=== PATIENT | male | born 1975 | race Caucasian/White ===

== ENCOUNTER 2019-11-20 08:23 | Inpatient (IN) | payer MEDICAID, SELFPAY ==
[~2019-11-20] VITALS: Ht 170.2 cm; Wt 72.6 kg
--- NOTE | 2019-11-20 08:23 | NUR ---
[facility] TO ER BED 01
[2019-11-20 08:40] VITALS: BP 99/56
[2019-11-20] MEDS ORDERED: ACETAMINOPHEN EXTRA STRENGTH 500 MG TAB ONE ×2 (08:44→17:07)
--- NOTE | 2019-11-20 08:50 | NUR ---
dr mendosa at bedside evaluating pt.
--- NOTE | 2019-11-20 09:00 | NUR ---
jenny from home c/o sob for 5 days , tested positive for covid 19 2 weeks ago at [facility] . meds given with no relief . Pt aox4 fibrile , ambulatory ,with steady gait, sce, cbs, flat soft abdomen . pmhxs unremarkable.
--- NOTE | 2019-11-20 09:00 | NUR ---
gave tylenol 1000mg po .
--- NOTE | 2019-11-20 09:10 | NUR ---
eloisa vasquez at bedside faiza ekg.
[2019-11-20 09:17] LABS: BASOPHILS % (AUTO) 0.2 % (0.0-2.0); HEMATOCRIT 38.8 % (36-52); HEMOGLOBIN 13.7 g/dL (12.0-18.0); LYMPHOCYTES # (AUTO) 0.7 K/uL (2.0-11.5); LYMPHOCYTES % (AUTO) 8.4 % (20.5-51.1); MEAN CORPUSCULAR HEMOGLOBIN 30 pg (27-31); MEAN CORPUSCULAR HGB CONC 35 g/dL (33-37); MEAN CORPUSCULAR VOLUME 84.9 fL (80-94); MONOCYTES # (AUTO) 0.4 K/uL (0.8-1.0); MONOCYTES % (AUTO) 5.2 % (1.7-9.3); NEUTROPHILS # (AUTO) 7.3 K/uL (1.8-7.7); NEUTROPHILS % (AUTO) 86.2 % (42.2-75.2); PLATELET COUNT (AUTO) 245 K/uL (140-450); RED BLOOD CELL COUNT(AUTO) 4.57 MIL/uL (4.20-6.10); RED CELL DISTRIBUTION WIDTH 12.9 % (11.6-13.7); WHITE BLOOD COUNT (AUTO) 8.5 K/uL (4.8-10.8)
--- NOTE | 2019-11-20 09:30 | NUR ---
xray at bedside.
[2019-11-20 09:35] LABS: PROTHROMBIN TIME 10.2 secs (10.8-13.4)
[2019-11-20 09:46] LABS: ALBUMIN 3.1 g/dL (3.4-5.0); ANION GAP 17.9 (8-16); CARBON DIOXIDE 23.1 mmol/L (21-32); CREATININE 0.9 mg/dL (0.6-1.3); TOTAL BILIRUBIN 0.7 mg/dL (0.0-1.0)
--- NOTE | 2019-11-20 09:48 | NUR ---
rsv, and influenza , covid test done ,sent to lab.
[2019-11-20] MEDS ORDERED: KCL 20 MEQ/WATER INJ PREMIX 100 ML IV ONE (10:05)
[2019-11-20] MEDS ORDERED: AZITHROMYCIN 500 MG in DEXTROSE 5% 250 ML IV ONE (10:05)
[2019-11-20 10:26] LABS: LACTATE DEHYDROGENASE 452 U/L (85-227)
[2019-11-20] MEDS ORDERED: AZITHROMYCIN 500 MG INJ VIAL IV ONE (10:34)
[2019-11-20] MEDS ORDERED: cefTRIAXone 1,000 MG VIAL ONE (10:34)
[2019-11-20 10:49] LABS: RSV NEGATIVE (NEGATIVE)
--- NOTE | 2019-11-20 10:53 | NUR ---
ANTIBIOTICS STARTED , PT NO COMPLAINT.
[2019-11-20 12:02] LABS: APPEARANCE,URINE SL CLOUDY (CLEAR); BILIRUBIN,URINE NEGATIVE (NEGATIVE); BLOOD, URINE NEGATIVE (NEGATIVE); COLOR,URINE ORANGE (YELLOW); LEUKOCYTE ESTERASE ,URINE NEGATIVE (NEGATIVE); NITRITE, URINE NEGATIVE (NEGATIVE); UGLUCOSE NEGATIVE (NEGATIVE)
[2019-11-20 12:14] LABS: RBC,URINE 0-5 /HPF (0-5); WBC,URINE 0-5 /HPF (0-5)
[2019-11-20 12:26] LABS: C-REACTIVE PROTEIN QUANT 8.5 mg/dL (0.0-0.9)
--- NOTE | 2019-11-20 14:00 | NUR ---
PT SITTING IN BED SNACKING , WITH NO COMPLAINT AT THIS TIME.
--- NOTE | 2019-11-20 16:36 | NUR ---
pt resting in bed comfortably , side rail up x1 and lock at lowest position.no complaint at this time.
[2019-11-20] MEDS ORDERED: ACETAMINOPHEN EXTRA STRENGTH 500 MG TAB PO PRN (17:10)
--- NOTE | 2019-11-20 17:15 | NUR ---
oral temperature 101.6 , gave tylenol 1000mg /tab .
--- NOTE | 2019-11-20 17:24 | NUR ---
spoke to emile pt regarding pt condition . all question answered.
--- NOTE | 2019-11-20 19:18 | NUR ---
RECEIVED REPORT FROM MIGUEL BEST FOR CONTINUATION OF CARE
--- NOTE | 2019-11-20 19:20 | NUR ---
transfer care to madeline villareal pt with stable vs.
--- NOTE | 2019-11-20 19:40 | NUR ---
RECEIVED CALL FROM LAB REGARDING COVID SPECIMEN, PT IS COVID POSITIVE
--- NOTE | 2019-11-20 19:41 | NUR ---
MD JOHNSON AWARE OF + COVID RESULT FROM LAB.
[2019-11-20] MEDS: ZINC SULF 220 MG CAP PO SCH (20:35)
--- NOTE | 2019-11-20 20:36 | NUR ---
PT RESTING IN BED, RESPIRATIONS REGULAR AND UNLABORED. PT REMAINS ON O2 AND ON BEDSIDE MONITOR. BED IN LOWEST POSITION AND SIDE RAIL UP X 1
--- NOTE | 2019-11-20 20:50 | NUR ---
PTS DAUGHTER, JACKIE, CALLED WANTING AN UPDATE ON HER DAD. ADVISED HE IS STABLE AND WAITING TO BE TRANSFERRED TO [facility]. ADVISED PT DAUGHTER CALLED.
--- NOTE | 2019-11-20 22:01 | NUR ---
PT UP AT BEDSIDE COMMODE, ABLE TO AMBULATE WITHOUT ASSITANCE TO COMMODE
--- NOTE | 2019-11-20 22:30 | NUR ---
PT BACK TO BED, PLACED BACK ON BEDSIDE MONITOR AND O2. PT HAD LOOSE BM. PT DENIES N/V, STATES HE FEELS WEAK. BED REMAINS LOCKED, LOW, AND SIDERAIL UP X1
--- NOTE | 2019-11-20 23:12 | NUR ---
PT TEMP WAS 100.0, MEDICATED WITH TYLENOL PER ORDER FOR FEVER. REPOSITIONED PT FOR COMFORT.
--- NOTE | 2019-11-21 00:22 | NUR ---
PTS TEMP 101.1 AFTER 1 G TYLENOL, NO CHANGED ER MD NOTIFIED, AWAITING ORDER
[2019-11-21] MEDS ORDERED: MAG SULF 2000 MG/WATER PREMIX 50 ML IV PRN (00:50)
[2019-11-21] MEDS ORDERED: POTASSIUM CHLORIDE 10 MEQ TABER PO PRN (00:50)
[2019-11-21] MEDS ORDERED: ONDANSETRON 4 MG/2 ML VIAL IM/IVP PRN (00:55)
[2019-11-21] MEDS ORDERED: MORPHINE SULFATE 2 MG/ML SYR IVP PRN (00:55)
[2019-11-21] MEDS ORDERED: ACETAMINOPHEN 325 MG TAB PO PRN (00:55)
[2019-11-21] MEDS ORDERED: ZOLPIDEM 5 MG TAB PO PRN (00:55)
[2019-11-21] MEDS ORDERED: DOCUSATE SODIUM 100 MG GELCAP PO PRN (00:55)
[2019-11-21 01:25] LABS: BARBITURATE, URINE NEGATIVE ng/ml (NEG <=200); BENZODIAZEPINE, URINE NEGATIVE ng/mL (NEG <=200); CANNABINOID, URINE POSITIVE ng/mL (NEG <=50); COCAINE, URINE NEGATIVE ng/mL (NEG <=300); OPIATE, URINE NEGATIVE ng/mL (NEG <=2000); PHENCYCLIDINE SCREEN,URINE NEGATIVE ng/mL (NEG <=25)
[2019-11-21 01:27] LABS: CHOL/HDL RATIO 2.8 (1-4.5); THYROID STIMULATING HORMONE 0.46 uIU/mL (0.34-3.74)
[2019-11-21] MEDS: NACL 0.9% 1,000 ML IV SCH ×3 (01:40→19:48)
--- NOTE | 2019-11-21 03:05 | NUR ---
PT SLEEPING, REMAINS ON BEDSIDE MONITOR, RESPIRATIONS REMAIN ELEVATED AT 25, THEY ARE EVEN AND UNLABORED, O2 STA IS 97% ON 3 L N/C. PT REMAINS ON BEDSDIE MONITOR. NO SIGNS OF DISTRESS NOTED.
--- NOTE | 2019-11-21 06:30 | NUR ---
LAB AT BEDSIDE DRAWING AM LABS
--- NOTE | 2019-11-21 07:18 | NUR ---
REPORT GIVEN TO MIGUEL BEST FOR TRANSFER OF CARE
--- NOTE | 2019-11-21 07:19 | NUR ---
RECEIVED REPORT FROM ESTEPHANIA ROSS.
--- NOTE | 2019-11-21 07:55 | NUR ---
PATIENT HAS BEEN SCREENED AND CATEGORIZED MODERATE NUTRITION RISK. PATIENT WILL BE SEEN WITHIN 3-5 DAYS OF ADMISSION. 11/23/19 11/25/[address]
--- NOTE | 2019-11-21 07:57 | NUR ---
500 ml left of nss received from madeline villareal.
[2019-11-21] MEDS ORDERED: cefTRIAXone 1,000 MG VIAL ONE (08:21)
[2019-11-21 08:49] LABS: BASOPHILS % (AUTO) 0.5 % (0.0-2.0); HEMATOCRIT 38.1 % (36-52); HEMOGLOBIN 13.2 g/dL (12.0-18.0); LYMPHOCYTES # (AUTO) 1.1 K/uL (2.0-11.5); MEAN CORPUSCULAR HEMOGLOBIN 30 pg (27-31); MEAN CORPUSCULAR HGB CONC 35 g/dL (33-37); MEAN CORPUSCULAR VOLUME 86.7 fL (80-94); MONOCYTES # (AUTO) 0.4 K/uL (0.8-1.0); MONOCYTES % (AUTO) 5.3 % (1.7-9.3); NEUTROPHILS # (AUTO) 6.5 K/uL (1.8-7.7); NEUTROPHILS % (AUTO) 80.2 % (42.2-75.2); PLATELET COUNT (AUTO) 276 K/uL (140-450); RED BLOOD CELL COUNT(AUTO) 4.39 MIL/uL (4.20-6.10); RED CELL DISTRIBUTION WIDTH 13.2 % (11.6-13.7); WHITE BLOOD COUNT (AUTO) 8.1 K/uL (4.8-10.8)
[2019-11-21] MEDS ORDERED: AZITHROMYCIN 250 MG TAB PO SCH (09:00)
[2019-11-21] MEDS: VITAMIN D 400 IU TAB PO SCH (09:04)
[2019-11-21] MEDS: ASCORBIC ACID 500 MG TAB PO SCH (09:05)
[2019-11-21] MEDS: ZINC SULF 220 MG CAP PO SCH ×2 (09:08→21:17)
[2019-11-21] MEDS: AZITHROMYCIN 250 MG TAB PO SCH (09:08)
[2019-11-21] MEDS: ENOXAPARIN 80 MG/0.8 ML SYR SUBQ SCH ×2 (09:09→21:19)
--- NOTE | 2019-11-21 09:14 | NUR ---
spoke to pt daughter on the phone with pt permission regarding pt condition.
[2019-11-21 09:18] LABS: ALBUMIN 2.7 g/dL (3.4-5.0); ANION GAP 15.2 (8-16); CARBON DIOXIDE 24.2 mmol/L (21-32); CREATININE 0.8 mg/dL (0.6-1.3); MAGNESIUM 2.1 mg/dL (1.8-2.4); PHOSPHORUS 3.1 mg/dL (2.5-4.9); POTASSIUM 3.4 mmol/L (3.5-5.1); TOTAL BILIRUBIN 0.6 mg/dL (0.0-1.0)
--- NOTE | 2019-11-21 10:07 | NUR ---
pt eating breakfast no complaint at this time.
--- NOTE | 2019-11-21 10:39 | NUR ---
transfered care to madeline wihtley at OF room 127. pt aox4 , afibrile , ambulatory with steady gait.stable v/s.
--- NOTE | 2019-11-21 10:39 | NUR ---
300 ml left of nss bag running at 100ml /hr to OF01 room 127. madeline dent informed and aware.
[2019-11-21] MEDS: ALBUTEROL HFA MDI 90 MCG/ACTUATION 8 GM INH PRN (11:11)
--- NOTE | 2019-11-21 11:15 | NUR ---
RECEIVED PT FROM ER FOR CONTINUATION OF CARE. PT IS TACHYPNEIC AND DIAPHORETIC WITH 02 SAT 90% ON NC 5LPM. CALLED RT FOR ALBUTEROL MDI. PLACED PT ON OXIMIZER AT 5LPM, O2 SAT INCREASED TO 96%. ADMINISTERED 1MG ATIVAN IVP TO HELP EASE PT ANXIETY AND ADMINISTERED 1 5MG TAB NORCO FOR CHEST PAIN ON INHALATION. SITUATED PT IN BED FOR COMFORT AND DIMMED LIGHT.
[2019-11-21] MEDS: LORazepam 2 MG/ML VIAL IM/IVP PRN ×2 (11:29→18:24)
[2019-11-21] MEDS: HYDROcodone/APAP 5/325 MG 1 TAB TAB PO PRN ×2 (11:29→18:24)
--- NOTE | 2019-11-21 12:07 | NUR ---
PT COMFORTABLE AND RESTING IN BED, NO NEW NEEDS AT THIS TIME
--- NOTE | 2019-11-21 14:00 | NUR ---
PT AWAKE AND ON CELL PHONE. NO NEW NEEDS AT THIS TIME.
--- NOTE | 2019-11-21 16:21 | NUR ---
BROUGHT PT ICE WATER AND JUICE PER REQUEST. PT AMBULATED TO RESTROOM WITH STEADY GAIT. PT REMAINS ON 5LMP OXIMIZER AT 97%
--- NOTE | 2019-11-21 17:50 | NUR ---
PT REPORTS BODY ACHES 7/10 AND FEELING LIKE HIS "HEART IS BEATING FAST".
--- NOTE | 2019-11-21 18:05 | NUR ---
PT IV CAME OUT OF PLACE, NEW IV STARTED ON LFA
--- NOTE | 2019-11-21 19:25 | NUR ---
Patient will be admitted to care of dr. vyas. Admited to tele. Will go to room 127B. Belongings list completed. Report to ESTEPHANIA Johnson.
--- NOTE | 2019-11-21 19:25 | NUR ---
RECEIVED PT FROM ER NURSE, LIZZY. PT ON TELE MONITOR. PT AOX4 ON 5L OXYMIZER. NO S/S RESPIRATORY DISTRESS. NO C/O PAIN AT THIS TIME. IV SITE ON L FA 20G, ASYMPTOMATIC, PATENT, INTACT. SKIN INTACT. SAFETY PRECAUTIONS IN PLACE. DROPLET PRECAUTION IN PLACE. CALL LIGHT WITHIN REACH. WILL CONTINUE TO MONITOR.
[2019-11-21 20:00] VITALS: BP 107/61
--- NOTE | 2019-11-21 21:09 | NUR ---
PT SLEEPING COMFORTABLY W/ NO S/S OF DISTRESS AT THIS TIME
--- NOTE | 2019-11-21 21:20 | NUR ---
ADMINISTERED SCHEDULED MEDICATION PER MD. MEDICATION EDUCATION GIVEN. PT VERBALIZED UNDERSTANDING. WILL CONTINUE TO MONITOR.
--- NOTE | 2019-11-21 23:30 | NUR ---
PT AWAKE RESTING IN BED. RESPIRATIONS EVEN AND UNLABORED. NO C/O PAIN AT THIS TIME. DENIES SOB. WILL CONTINUE TO MONITOR.
[2019-11-22] VITALS: BP 113/69
--- NOTE | 2019-11-22 01:30 | NUR ---
PT ASLEEP. NO DISTRESS NOTED. WILL CONTINUE TO MONITOR.
--- NOTE | 2019-11-22 03:45 | NUR ---
PT ASLEEP IN BED. RESPIRATIONS EVEN AND UNLABORED. WILL CONTINUE TO MONITOR.
[2019-11-22 04:00] VITALS: BP 100/65
--- NOTE | 2019-11-22 05:30 | NUR ---
PT CHEST PAIN WHEN COUGHING. SAT PT UP HIGH FOWLERS POSITION. CALLED RT. RT ON BEDSIDE INCREASED OXYMIZER TO 7L. WILL CONTINUE TO MONITOR.
--- NOTE | 2019-11-22 05:45 | NUR ---
PT STATES CHEST PAIN DECREASED, ABLE TO TOLERATE. NO DISTRESS NOTED. CALL LIGHT WITHIN REACH. WILL CONTINUE TO MONITOR.
[2019-11-22 06:18] LABS: BASOPHILS % (AUTO) 0.5 % (0.0-2.0); HEMOGLOBIN 13.9 g/dL (12.0-18.0); LYMPHOCYTES # (AUTO) 1.4 K/uL (2.0-11.5); LYMPHOCYTES % (AUTO) 27.3 % (20.5-51.1); MEAN CORPUSCULAR HEMOGLOBIN 30 pg (27-31); MEAN CORPUSCULAR HGB CONC 34 g/dL (33-37); MONOCYTES # (AUTO) 0.6 K/uL (0.8-1.0); MONOCYTES % (AUTO) 11.2 % (1.7-9.3); NEUTROPHILS # (AUTO) 3.1 K/uL (1.8-7.7); PLATELET COUNT (AUTO) 365 K/uL (140-450); RED BLOOD CELL COUNT(AUTO) 4.66 MIL/uL (4.20-6.10); RED CELL DISTRIBUTION WIDTH 13.3 % (11.6-13.7); WHITE BLOOD COUNT (AUTO) 5.2 K/uL (4.8-10.8)
[2019-11-22] MEDS: NACL 0.9% 1,000 ML IV SCH ×2 (06:50→16:52)
[2019-11-22 07:13] LABS: ALBUMIN 2.7 g/dL (3.4-5.0); CARBON DIOXIDE 28.2 mmol/L (21-32); CREATININE 0.9 mg/dL (0.6-1.3); MAGNESIUM 2.3 mg/dL (1.8-2.4); PHOSPHORUS 3.9 mg/dL (2.5-4.9); POTASSIUM 4.2 mmol/L (3.5-5.1); TOTAL BILIRUBIN 0.5 mg/dL (0.0-1.0)
--- NOTE | 2019-11-22 07:15 | NUR ---
ENDORSED PT IN STABLE CONDITION TO DAY RN FOR CONTINUITY OF CARE.
--- NOTE | 2019-11-22 07:20 | NUR ---
RECEIVED PT FROM BIOSECURITY OFFICER NURSEMAGALIE,PT IS AWAKE AND ON O2 AT 7L OXIMIZER, IV LINE ON THE LFA G. 22 WITH NS INFUSING AT 100ML/HR, NO SIGN OF DISTRESS NOTED AND WILL MONITOR PT.
[2019-11-22 08:00] VITALS: BP 109/60
[2019-11-22 08:06] LABS: T4 (THYROXINE) 10.2 ug/dL (4.5-12.0)
[2019-11-22] MEDS: ENOXAPARIN 80 MG/0.8 ML SYR SUBQ SCH ×2 (08:27→21:37)
[2019-11-22] MEDS: ZINC SULF 220 MG CAP PO SCH ×2 (08:27→21:36)
[2019-11-22] MEDS: VITAMIN D 400 IU TAB PO SCH (08:27)
[2019-11-22] MEDS: AZITHROMYCIN 250 MG TAB PO SCH (08:28)
--- NOTE | 2019-11-22 08:28 | NUR ---
PT WAS GIVEN THE SCHEDULED AM MEDICATIONS NOW, NO SIGN OF DISTRESS NOTED AND WILL MONITOR PT.
[2019-11-22] MEDS: ASCORBIC ACID 500 MG TAB PO SCH (08:34)
[2019-11-22] MEDS: ALBUTEROL HFA MDI 90 MCG/ACTUATION 8 GM INH PRN (08:51)
[2019-11-22] MEDS ORDERED: guaiFENesin 600 MG TABER PO SCH (10:46)
--- NOTE | 2019-11-22 11:43 | NUR ---
OCCUPATIONAL THERAPY PROFESSOR NOTE: Patient's Orientation Unable To Assess Information Provided By SLY LUZ - Comments SW WAS UNABLE TO MEET PATIENT AT BEDSIDE DUE TO MEDICAL CONDITION. Timing Adjuster, Realtionship and Phone Number SLY LUZ [phone] Healthcare Power of Stack Attendant No Does Patient Have a POLST No Identifying Problems No Social Work Triggers Is A Social Work Consult Needed No Mandate Report Filed No Explanation Of Identifying Problems PATIENT IS A 44-YEAR-OLD MALE ADMITTED FOR PNEUMONIA. PATIENT HAS NO PERTINENT PMHX. Admitted From Home Pre-Admission Level Of Functioning Status Independent/Ambulatory Prior Resources/Services Used In Last 12 Months No Prior Resources Used Prior DME No Prior DME Used Living Situation Lives With Family House Patient Had Caregiver No Home Support No Caregiver Issues Financial Issues No Known Financial Issue Referral To The Financial Counselor Needed No Factors/Needs No D/C Needs Identified Pt/Rep Participated In Discharge Plan Yes Patient/Family Agress With Discharge Plan Yes Discharge Plan Comments TENTATIVE DISCHARGE PLAN IS FOR PATIENT TO RETURN HOME. DC Plan Status Initiated
--- NOTE | 2019-11-22 11:45 | NUR ---
PT WAS GIVEN MUCINEX ORAL TABLET NOW, NO SIGN OF DISTRESS NOTED AND WILL MONITOR PT.
[2019-11-22 12:00] VITALS: BP 103/63
--- NOTE | 2019-11-22 13:40 | NUR ---
PT WAS ASSISTED TO THE BATHROOM NOW, NO SIGN OF DISTRESS NOTED.
[2019-11-22] MEDS ORDERED: remdesivir COMMUNICATION ORDER 1 EA MISC MC PRN (15:50)
[2019-11-22 16:00] VITALS: BP 125/69
--- NOTE | 2019-11-22 16:00 | NUR ---
PT IS RESTING NOW, WATCHING TV, NO SIGN OF DISTRESS NOTED.
[2019-11-22] MEDS ORDERED: REMDESIVIR (EUA) 200 MG in NACL 0.9% 100 ML IV ONE (18:00)
[2019-11-22] MEDS ORDERED: CLINICAL MONITORING MC PRN (18:00)
--- NOTE | 2019-11-22 18:03 | NUR ---
PT WAS GIVEN REMDESEVIR IVPB NOW, WILL MONITOR PT.
--- NOTE | 2019-11-22 19:30 | NUR ---
ENDORSED PT TO ASSISTANT SPA MANAGER NURSEMAGALIE FOR CONTINUITY OF CARE.
--- NOTE | 2019-11-22 19:30 | NUR ---
RECEIVED PT FROM DAY SHIFT NURSE. PT IS AWAKE AND ON O2 AT 9L OXIMIZER, IV LINE ON THE LFA 22G WITH NS INFUSING AT 100ML/HR, NO SIGN OF DISTRESS NOTED AND WILL MONITOR PT.
[2019-11-22 20:00] VITALS: BP 116/72
[2019-11-22] MEDS: guaiFENesin 600 MG TABER PO SCH (21:35)
--- NOTE | 2019-11-22 21:35 | NUR ---
ADMINISTERED SCHEDULED MEDS PER MD. MEDICATION EDUCATION GIVEN. PT VERBALIZED UNDERSTANDING. WILL CONTINUE TO MONITOR.
--- NOTE | 2019-11-22 23:40 | NUR ---
PT ASLEEP IN BED. RESPIRATIONS EVEN AND UNLABORED. WILL CONTINUE TO MONITOR.
[2019-11-23] VITALS: BP 116/63
--- NOTE | 2019-11-23 01:20 | NUR ---
PT AWAKE. DENIES PAIN, DENIES SOB. NO DISTRESS NOTED. O2 SATURATION 96%. WILL CONTINUE TO MONITOR.
[2019-11-23] MEDS: NACL 0.9% 1,000 ML IV SCH ×3 (03:21→22:13)
--- NOTE | 2019-11-23 03:40 | NUR ---
PT ASLEEP. NO DISTRESS NOTED. WILL CONTINUE TO MONITOR.
[2019-11-23 04:00] VITALS: BP 108/66
--- NOTE | 2019-11-23 05:15 | NUR ---
PT AWAKE. RESPIRATIONS EVEN AND UNLABORED. NO C/O PAIN AT THIS TIME. WILL CONTINUE TO MONITOR.
[2019-11-23 05:45] LABS: BASOPHILS % (AUTO) 0.2 % (0.0-2.0); HEMATOCRIT 37.9 % (36-52); HEMOGLOBIN 12.8 g/dL (12.0-18.0); LYMPHOCYTES # (AUTO) 2.2 K/uL (2.0-11.5); LYMPHOCYTES % (AUTO) 24.2 % (20.5-51.1); MEAN CORPUSCULAR HEMOGLOBIN 30 pg (27-31); MEAN CORPUSCULAR HGB CONC 34 g/dL (33-37); MEAN CORPUSCULAR VOLUME 88.2 fL (80-94); MONOCYTES % (AUTO) 10.5 % (1.7-9.3); NEUTROPHILS # (AUTO) 5.9 K/uL (1.8-7.7); NEUTROPHILS % (AUTO) 65.1 % (42.2-75.2); PLATELET COUNT (AUTO) 408 K/uL (140-450); RED CELL DISTRIBUTION WIDTH 13.2 % (11.6-13.7); WHITE BLOOD COUNT (AUTO) 9.1 K/uL (4.8-10.8)
[2019-11-23 06:14] LABS: PROTHROMBIN TIME 10.6 secs (10.8-13.4)
[2019-11-23 06:21] LABS: ALBUMIN 2.5 g/dL (3.4-5.0); ANION GAP 12.7 (8-16); CARBON DIOXIDE 28.9 mmol/L (21-32); CREATININE 0.8 mg/dL (0.6-1.3); PHOSPHORUS 3.8 mg/dL (2.5-4.9); POTASSIUM 3.6 mmol/L (3.5-5.1); TOTAL BILIRUBIN 0.4 mg/dL (0.0-1.0)
--- NOTE | 2019-11-23 07:21 | NUR ---
RECEIVED REPORT FROM AIR CONDITIONING COIL ASSEMBLER RN FOR CONTINUITY OF CARE. PT IS AAOX4, COOPERATIVE AND ABLE TO MAKE NEEDS KNOWN. PT ON 9L O2 VIA OXYMIZER SATING 96%. PT SKIN INTACT. AMBULATORY AND ABLE TO PERFORM ADL'S INDEPENDENTLY. PT HAS LEFT FA 22G INFUSING NS @ 100ML/HR. DISCUSSED POC WITH PT AND TP VERBALIZED UNDERSTANDING. ALL NEEDS CURRENTLY MET. WILL CONTINUE TO ROUND FREQUENTLY ON PT.
--- NOTE | 2019-11-23 07:25 | NUR ---
ENDORSED PT IN STABLE CONDITION TO DAY RN FOR CONTINUITY OF CARE.
[2019-11-23 08:00] VITALS: BP 110/60
--- NOTE | 2019-11-23 08:47 | NUR ---
ADMINISTERED MORNING MEDS. PT TOLERATED WELL. ALL NEEDS CURRENTLY MET. WILL CONTINUE TO ROUND FREQUENTLY ON PT.
[2019-11-23] MEDS: VITAMIN D 400 IU TAB PO SCH (08:55)
[2019-11-23] MEDS: guaiFENesin 600 MG TABER PO SCH ×2 (08:55→20:30)
[2019-11-23] MEDS: ASCORBIC ACID 500 MG TAB PO SCH (08:55)
[2019-11-23] MEDS: ZINC SULF 220 MG CAP PO SCH ×2 (08:56→20:30)
[2019-11-23] MEDS: AZITHROMYCIN 250 MG TAB PO SCH (08:56)
[2019-11-23] MEDS: ENOXAPARIN 80 MG/0.8 ML SYR SUBQ SCH ×2 (09:12→20:45)
--- NOTE | 2019-11-23 11:07 | NUR ---
RECEIVED REPORT FROM PROGRAM DIRECTOR AIR TALENT RN FOR CONTINUITY OF CARE. PT IS AAOX4, COOPERATIVE AND ABLE TO MAKE NEEDS KNOWN. PT ON 9L O2 VIA OXYMIZER SATING 96%. PT SKIN INTACT. AMBULATORY AND ABLE TO PERFORM ADL'S INDEPENDENTLY. PT HAS LEFT FA 22G INFUSING NS @ 100ML/HR. DISCUSSED POC WITH PT AND TP VERBALIZED UNDERSTANDING. ALL NEEDS CURRENTLY MET. WILL CONTINUE TO ROUND FREQUENTLY ON PT. Addendum: 11/23/19 at 1113 by Missy Bartlett RN MORNING OPENING NOTE.
--- NOTE | 2019-11-23 11:12 | NUR ---
PT RESTING IN BED. ALL NEEDS MET. WILL CONTINUE TO ROUND FREQUENTLY ON PT.
[2019-11-23 12:00] VITALS: BP 119/61
--- NOTE | 2019-11-23 13:11 | NUR ---
PT TALKING ON THE PHONE. ALL NEEDS MET.
--- NOTE | 2019-11-23 15:21 | NUR ---
DISCHARGE PLANNING: THIS IS A 44 Y/O MALE PATIENT FROM HOME, WHO WAS BIBA DUE TO SHORTNESS OF BREATH. PAST MEDICAL HISTORY INCLUDE [place] [facility] [place] DIAGNOSIS OF PNEUMONIA/COVID POSITIVE. ON REMDESIVIR, DECADRON, ROCEPHIN, AZITHROMYCIN. PULMO AND ID CONSULTS IN PLACE. ON OXYMIZER AT 9 LPM. DC PLAN BACK TO HOME ONCE STABLE. Addendum: 11/24/19 at 0847 by Clara Cummings CM RECEIVED ORDER FOR HOME 02. FAXED TO [employer]. Addendum: 11/24/19 at 1019 by Clara Cummings CM SPOKE TO SILVANA FROM [facility] SHE IS REQUESTING DOCUMENT THAT PATIENT SATS AT 89% OR BELOW. SPOKE TO ESTEPHANIA XAVIER SHE IS GOING TO ASSES HIM AND MAKE NOTE Addendum: 11/24/19 at 1252 by Clara Cummings CM FOLLOWED UP WITH SILVANA AT [facility] SHE RECEIVED ALL THE SUPPORTING DOCUMENTS THAT WAS NEEDED. HOME O2 WILL BE DISPATCHED AND DELIVERED TODAY Addendum: 11/24/19 at 1437 by Chloe Bailey RECEIVED A CALL FROM PRIMARY RN TO INFORM US THAT O2 HAVE BEEN DELIVERED AT THE BEDSIDE. DR. MCKEON MADE AWARE. PER DR. MCKEON, PATIENT IS NOT READY FOR DC YET, PATIENT IS STILL ON O2 AT 10 LPM/OXYMIZER. PRIMARY RN CONFIRMED THAT PATIENT IS AT 9 LPM/OXYMIZER. DR. MCKEON MADE AWARE, WILL NOT BE DISCHARGING PATIENT YET. PRIMARY RN MADE AWARE.
--- NOTE | 2019-11-23 15:47 | NUR ---
PT WATCHING TV AND RESTING IN BED. ALL NEEDS CURRENTLY MET.
[2019-11-23 16:00] VITALS: BP 115/76
--- NOTE | 2019-11-23 17:28 | NUR ---
PT RESTING IN BED. ALL NEEDS MET. WILL CONTINUE TO ROUND FREQUENTLY ON PT.
[2019-11-23] MEDS: REMDESIVIR (EUA) 100 MG in NACL 0.9% 100 ML IV SCH (18:03)
--- NOTE | 2019-11-23 18:52 | NUR ---
WILL ENDORSE PT TO COPPER PLATE PRINTER FOR CONTINUITY OF CARE. PT IN STABLE CONDITION AT THIS TIME.
--- NOTE | 2019-11-23 19:20 | NUR ---
RECEIVED BEDSIDE REPORT FROM DAY RN LISA. PT IS LAYING COMFORTABLY IN BED NO S/S OF DISTRESS. VIETNAMESE SPEAKING. AAOX4. RESPIRATIONS ARE EQUAL AND UNLABORED ON 9L OXIMZER SAT 97% HR 77. PT IS AMBULATORY AND ABLE TO MAKE NEEDS KNOWN. SKIN IS INTACT. DX:PNA, COVID + ISOLATION PER PROTOCOL SIGN AT DOOR. LFA 22G IVF INFUSING PER ORDERS. ALL SAFETY MEASURES ARE IN PLACE. POC DISCUSSED WITH PT. CALL LIGHT IS WITHIN REACH. WILL CONTINUE TO MONITOR.
[2019-11-23 20:00] VITALS: BP 114/67
--- NOTE | 2019-11-23 20:45 | NUR ---
VSS, ADONAY MEDICATION GIVEN PER ORDERS. MED EDUCATION GIVEN PT VERBALIZED UNDERSTANDING. ALL QUESTIONS AND CONCERNS ADDRESSED.PT ATE 75% OF DINNER. ENCOURAGE PT TO AMBULATE IN ROOM. ALL SAFETY MEASURES ARE IN PLACE. ALL NEEDS MET. CALL LIGHT IS WITHIN REACH.
--- NOTE | 2019-11-23 22:06 | NUR ---
PT IS LAYING COMFORTABLY IN BED. NO S/S OF DISTRESS. CALL LIGHT IS WITHIN REACH.
[2019-11-24] VITALS: BP 121/61
--- NOTE | 2019-11-24 | NUR ---
VITAL SIGNS ARE WITHIN NORMAL LIMITS. ALL NEEDS MET. CALL LIGHT IS WITHIN REACH.
--- NOTE | 2019-11-24 01:49 | NUR ---
PT IS SLEEPING COMFORTABLY IN BED WITH EYES CLOSED. CHEST RISE AND FALL NOTED. CALL LIGHT IS WITHIN REACH. WILL CONTINUE TO MONITOR.
[2019-11-24 04:00] VITALS: BP 115/76
--- NOTE | 2019-11-24 04:00 | NUR ---
VITAL SIGNS ARE WITHIN NORMAL LIMITS. ALL SAFETY MEASURES ARE IN PLACE. WILL CONTINUE TO MONITOR.
[2019-11-24] MEDS: NACL 0.9% 1,000 ML IV SCH ×2 (04:55→17:48)
--- NOTE | 2019-11-24 05:58 | NUR ---
MADE ROUNDS. PT SLEEPING COMFORTABLY IN BED. CALL LIGHT IS WITHIN REACH.
[2019-11-24 06:22] LABS: BASOPHILS % (AUTO) 0.1 % (0.0-2.0); EOSINOPHILS % (AUTO) 0.1 % (0.0-4.0); HEMATOCRIT 36.8 % (36-52); HEMOGLOBIN 12.5 g/dL (12.0-18.0); LYMPHOCYTES % (AUTO) 27.4 % (20.5-51.1); MEAN CORPUSCULAR HEMOGLOBIN 30 pg (27-31); MEAN CORPUSCULAR HGB CONC 34 g/dL (33-37); MEAN CORPUSCULAR VOLUME 87.8 fL (80-94); MONOCYTES # (AUTO) 0.7 K/uL (0.8-1.0); MONOCYTES % (AUTO) 9.8 % (1.7-9.3); NEUTROPHILS # (AUTO) 4.7 K/uL (1.8-7.7); NEUTROPHILS % (AUTO) 62.6 % (42.2-75.2); PLATELET COUNT (AUTO) 420 K/uL (140-450); RED BLOOD CELL COUNT(AUTO) 4.19 MIL/uL (4.20-6.10); RED CELL DISTRIBUTION WIDTH 13.1 % (11.6-13.7); WHITE BLOOD COUNT (AUTO) 7.4 K/uL (4.8-10.8)
[2019-11-24 07:01] LABS: ALBUMIN 2.4 g/dL (3.4-5.0); ANION GAP 10.8 (8-16); CARBON DIOXIDE 27.7 mmol/L (21-32); CREATININE 0.7 mg/dL (0.6-1.3); MAGNESIUM 1.9 mg/dL (1.8-2.4); PHOSPHORUS 3.4 mg/dL (2.5-4.9); POTASSIUM 3.5 mmol/L (3.5-5.1); TOTAL BILIRUBIN 0.4 mg/dL (0.0-1.0)
--- NOTE | 2019-11-24 07:19 | NUR ---
GAVE BEDSIDE REPORT TO DAY RN. PT ENDORSED IN STABLE CONDITION.
--- NOTE | 2019-11-24 07:24 | NUR ---
RECEIVED REPORT FROM NIGHTSHIFT NURSE. PT RESTING IN BED. ABLE TO MAKE NEEDS KNOWN. RESPIRATIONS EVEN AND UNLABORED WITH NO SOB OR RESPIRATORY DISTRESS. SKIN WARM AND DRY TO TOUCH. IV SITE IN LFA 20G IS CLEAN, DRY, AND INTACT. SAFETY MEASURES IN PLACE. WILL CONTINUE TO MONITOR
[2019-11-24 08:00] VITALS: BP 109/57
[2019-11-24] MEDS: ENOXAPARIN 80 MG/0.8 ML SYR SUBQ SCH ×2 (09:51→21:00)
[2019-11-24] MEDS: VITAMIN D 400 IU TAB PO SCH (09:56)
[2019-11-24] MEDS: ASCORBIC ACID 500 MG TAB PO SCH (09:56)
[2019-11-24] MEDS: AZITHROMYCIN 250 MG TAB PO SCH (09:57)
[2019-11-24] MEDS: ZINC SULF 220 MG CAP PO SCH ×2 (09:57→21:00)
[2019-11-24] MEDS: guaiFENesin 600 MG TABER PO SCH ×2 (09:57→21:00)
--- NOTE | 2019-11-24 10:05 | NUR ---
ADMINISTERED SCHED MED PRESCRIBED PER MD ORDER. PT TOLERATED WELL. SAFETY MEASURES IN PLACE. WILL CONTINUE TO MONITOR
--- NOTE | 2019-11-24 10:33 | NUR ---
ASSESSED PATIENT'S NEED FOR OXYGEN THERAPY. TOOK 9L OXYMIZER OFF PATIENT TO SEE HOW HE TOLERATES ON ROOM AIR. PATIENT HAD DESATURATION OF 86-87% ON ROOM AIR. PLACED PATIENT BACK ON OXYMIZER. SAFETY MEASURES IN PLACE. WILL CONTINUE TO MONITOR
--- NOTE | 2019-11-24 11:24 | NUR ---
HOURLY ROUNDING. PT RESTING IN BED. ABLE TO MAKE NEEDS KNOWN. RESPIRATIONS EVEN AND UNLABORED WITH NO SOB OR RESPIRATORY DISTRESS. SKIN WARM AND DRY TO TOUCH. SAFETY MEASURES IN PLACE. WILL CONTINUE TO MONITOR
[2019-11-24 12:00] VITALS: BP 124/74
--- NOTE | 2019-11-24 13:10 | NUR ---
11/24/19 RD INITIAL ASSESSMENT COMPLETED PLEASE REFER TO NUTRITION ASSESSMENT UNDER CARE ACTIVITY FOR ESTIMATED NUTRITIONAL NEEDS. 1. CONTINUE REGULAR DIET TOLERATED 2. CONTINUE ENSURE TID 3. RD PROVIDED NUTRITION EDUCATION ON COVID-[address] TO FOLLOW-UP 3-5 DAYS, MODERATE RISK MALORIE IRIZARRY RD
--- NOTE | 2019-11-24 13:30 | NUR ---
ALYCIA BROUGHT OXYGEN FOR PATIENT TO USE UPON DISCHARGE. OXYGEN PLACED IN PATIENT'S ROOM. PATIENT STATES THAT HE IS NOT READY FOR DISCHARGE JUST YET. SAFETY MEASURES IN PLACE. WILL CONTINUE TO MONITOR
--- NOTE | 2019-11-24 14:15 | NUR ---
STARTED WEANING PATIENT OFF OF OXYMIZER. PATIENT AT 5L OXYMIZER AND O2 AT 96%. SAFETY MEASURES IN PLACE. WILL CONTINUE TO MONITOR
[2019-11-24 16:00] VITALS: BP 107/57
--- NOTE | 2019-11-24 16:45 | NUR ---
PT RESTING IN BED. ABLE TO MAKE NEEDS KNOWN. RESPIRATIONS EVEN AND UNLABORED WITH NO SOB OR RESPIRATORY DISTRESS. PT AT 96% ON 5L OXYMIZER. SKIN WARM AND DRY TO TOUCH. SAFETY MEASURES IN PLACE. WILL CONTINUE TO MONITOR
--- NOTE | 2019-11-24 17:00 | NUR ---
PT SIGNED CONSENT FOR PLASMA TRANSFUSION. CONSENT PLACED IN PATIENTS CHART. JUST AWAITING SIGNATURE FROM MD. SAFETY MEASURES IN PLACE. WILL CONTINUE TO MONITOR
[2019-11-24] MEDS: REMDESIVIR (EUA) 100 MG in NACL 0.9% 100 ML IV SCH (17:48)
--- NOTE | 2019-11-24 17:52 | NUR ---
ADMINISTERED SCHED MED PRESCRIBED PER MD ORDER. PT TOLERATED WELL. SAFETY MEASURES IN PLACE. WILL CONTINUE TO MONITOR
--- NOTE | 2019-11-24 19:08 | NUR ---
ENDORSED AT BEDSIDE TO NIGHTSHIFT NURSE FOR CONTINUITY OF CARE. PATIENT IS STABLE
--- NOTE | 2019-11-24 19:23 | NUR ---
RECEIVED CONTINUITY OF CARE FROM AM NURSE. PATIENT IS IN STABLE CONDITION. A/OX 4, [place] SPEAKING WITH LIMITED KYRGYZ. ON 5L 02 VIA OXYMIZER, NO RESPIRATORY DISTRESS NOTED. INTERMITTENT COUGH NOTED. SKIN IS WARM AND DRY TO TOUCH. ALL STAFF TO OBSERVE ISOLATION PRECAUTIONS. SAFETY PRECAUTION IN PLACE. WILL CONTINUE TO MONITOR.
[2019-11-24 20:00] VITALS: BP 102/52
--- NOTE | 2019-11-24 21:05 | NUR ---
MADE ROUND ON PATIENT. PATIENT IS IN STABLE CONDITION. ADMINISTERED ROUTINE MEDICATION. PATIENT TOLERATED WELL. WILL CONTINUE TO MONITOR.
--- NOTE | 2019-11-24 21:51 | NUR ---
RECEIVED REPORT FROM AM SHIFT. PT SEEN AND ASSESSED. FOUND PT ON ROOM AIR WITH SPO2 OF 92%. CLEAR BREATH SOUNDS ON AUSCULTATION. PT IN NO APPARENT RESPIRATORY DISTRESS AT THIS TIME. PRN TX NOT INDICATED AT THIS MOMENT. INFORMED PT TO CALL FOR PRN TX IF EXPERIENCING SOB. WILL CONTINUE TO MONITOR PT.
--- NOTE | 2019-11-24 23:26 | NUR ---
PATIENT IS SLEEPING. VISIBLE CHEST RISE NOTED. WILL CONTINUE TO MONITOR.
[2019-11-24] MEDS ORDERED: ENOXAPARIN 100 MG/ML SYR SUBQ ONE (23:47)
[2019-11-24] MEDS ORDERED: guaiFENesin 600 MG TABER PO ONE (23:51)
[2019-11-25] VITALS: BP 111/61
--- NOTE | 2019-11-25 01:00 | NUR ---
PATIENT IS SLEEPING AND IN STABLE CONDITION. VISIBLE CHEST RISE NOTED. WILL CONTINUE TO MONITOR.
--- NOTE | 2019-11-25 03:09 | NUR ---
PATIENT SLEEPING IN BED. VISIBLE CHEST RISE NOTED. WILL CONTINUE TO MONITOR.
[2019-11-25 04:00] VITALS: BP 130/70
[2019-11-25] MEDS: NACL 0.9% 1,000 ML IV SCH (04:12)
--- NOTE | 2019-11-25 05:17 | NUR ---
MADE ROUND ON PATIENT. PATIENT IS IN STABLE CONDITION. WILL CONTINUE TO MONITOR.
[2019-11-25 06:23] LABS: BASOPHILS % (AUTO) 0.1 % (0.0-2.0); EOSINOPHILS % (AUTO) 0.2 % (0.0-4.0); HEMOGLOBIN 12.8 g/dL (12.0-18.0); LYMPHOCYTES # (AUTO) 2.6 K/uL (2.0-11.5); MEAN CORPUSCULAR HEMOGLOBIN 30 pg (27-31); MEAN CORPUSCULAR HGB CONC 34 g/dL (33-37); MEAN CORPUSCULAR VOLUME 87.8 fL (80-94); MONOCYTES # (AUTO) 0.7 K/uL (0.8-1.0); MONOCYTES % (AUTO) 9.4 % (1.7-9.3); NEUTROPHILS # (AUTO) 4.6 K/uL (1.8-7.7); NEUTROPHILS % (AUTO) 57.3 % (42.2-75.2); PLATELET COUNT (AUTO) 450 K/uL (140-450); RED BLOOD CELL COUNT(AUTO) 4.33 MIL/uL (4.20-6.10); RED CELL DISTRIBUTION WIDTH 13.1 % (11.6-13.7)
--- NOTE | 2019-11-25 07:20 | NUR ---
RECEIVED REPORT FROM NAPPER FIXER NURSE FOR CONTINUITY OF CARE. PATIENT IS ASLEEP AND IN BED. ABLE TO MAKE NEEDS KNOWN. RESPIRATIONS EVEN AND UNLABORED WITH NO SOB OR RESPIRATORY DISTRESS ON 5L O2 VIA OXIMIZER. SKIN WARM AND DRY TO TOUCH. IV SITE IN LFA 20G IS CLEAN, DRY, AND INTACT AND RUNNING IVF PER ORDERS. SAFETY MEASURES IN PLACE. DROPLET ISOLATION OBSERVED BY ALL STAFF. CALL LIGHT WITHIN REACH. POC DISCUSSED. WILL CONTINUE TO MONITOR
--- NOTE | 2019-11-25 07:25 | NUR ---
GAVE REPORT TO AM NURSE. PATIENT IS IN STABLE CONDITION.
[2019-11-25 07:53] LABS: ALBUMIN 2.6 g/dL (3.4-5.0); ANION GAP 12.5 (8-16); CARBON DIOXIDE 27.1 mmol/L (21-32); CREATININE 0.6 mg/dL (0.6-1.3); MAGNESIUM 1.9 mg/dL (1.8-2.4); PHOSPHORUS 3.4 mg/dL (2.5-4.9); POTASSIUM 3.6 mmol/L (3.5-5.1); TOTAL BILIRUBIN 0.4 mg/dL (0.0-1.0)
[2019-11-25 08:00] VITALS: BP 90/53
[2019-11-25] MEDS: ENOXAPARIN 80 MG/0.8 ML SYR SUBQ SCH (09:13)
[2019-11-25] MEDS: AZITHROMYCIN 250 MG TAB PO SCH (09:14)
[2019-11-25] MEDS: ASCORBIC ACID 500 MG TAB PO SCH (09:14)
[2019-11-25] MEDS: VITAMIN D 400 IU TAB PO SCH (09:14)
[2019-11-25] MEDS: ZINC SULF 220 MG CAP PO SCH (09:15)
--- NOTE | 2019-11-25 09:15 | NUR ---
MORNING MEDICATIONS GIVEN. NO SIGNS OF DISTRESS NOTED. WILL CONTINUE TO MONITOR.
--- NOTE | 2019-11-25 10:10 | NUR ---
RECEIVED ORDERS FOR DISCHARGE ON 4L NC. PATIENT IS WEANED OFF OXIMIZER TO 3L NC WITH SAO2 AT 94%. PATIENT INFORMED ABOUT DISCHARGE PLAN FOR TODAY BUT STATES THAT HE IS NOT COMFORTABLE WITH DISCHARGE. WILL REPORT TO DR. MCKEON. WILL CONTINUE TO MONITOR.
[2019-11-25] MEDS ORDERED: DEC4 PO (10:50)
[2019-11-25] MEDS ORDERED: AZIT250T3 PO (10:50)
[2019-11-25] MEDS ORDERED: APIX2.5 PO (10:51)
[2019-11-25 12:00] VITALS: BP 104/58
--- NOTE | 2019-11-25 12:20 | NUR ---
DR. MCKEON BY THE BEDSIDE. WILL CONTINUE TO MONITOR.
[2019-11-25 13:47] VITALS: BP 104/58
--- NOTE | 2019-11-25 14:42 | NUR ---
PATIENT AGREES ON DISCHARGE PLAN, DISCHARGE INSTRUCTIONS GIVEN AND PATIENT VERBALIZES UNDERSTANDING. NO SIGNS OF DISTRESS NOTED. COVID-19 POSITIVE HANDOUTS GIVEN (NUTRITION, 10 WAYS TO MANAGE RESPIRATORY SYMPTOMS, AND HOME ISOLATION) GIVEN, PATIENT VERBALIZES UNDERSTANDING. WILL CONTINUE TO MONITOR.
--- NOTE | 2019-11-25 15:00 | NUR ---
PATIENT DISCHARGED TO HOME VIA UBER. NO SIGNS OF DISTRESS NOTED. IV SITE AND ARMBANDS REMOVED. DISCHARGE INSTRUCTIONS AND HANDOUTS GIVEN, PATIENT VERBALIZES UNDERSTANDING. PATIENT AMBULATED TOWARDS LOBBY WITH 2LPM O2 NC IN PLACE, VERBALIZES NO SOB AND PAIN.
[2019-11-26 06:18] LABS: CK-BB 0 % (0); CK-MB 0 % (0-3); CK-MM 100 % (97-100); LD2 FRACTION 33 % (25-40); LD3 FRACTION 25 % (17-27); LD4 FRACTION 10 % (5-13); LD5 FRACTION 16 % (4-20)
[2019-11-26 12:58] LABS: FERRITIN 1956 ng/mL (30 - 400); LACTATE DEHYDROGENASE 291 IU/L (0-214); LD1 FRACTION 16 % (17-32)
== END 2019-11-25 15:00 | disposition home or self-care (01) | DRG 137 ==
LOC: MED 08:23 → MTU 11:36 → MMU 11-21 18:59
DX: U07.1 COVID-19 (principal); R65.11 Systemic inflammatory response syndrome (SIRS) of non-infectious origin with acute organ dysfunction; J96.01 Acute respiratory failure with hypoxia; E87.1 Hypo-osmolality and hyponatremia; J12.89 Other viral pneumonia; E87.6 Hypokalemia; F12.10 Cannabis abuse, uncomplicated; R74.0 Nonspecific elevation of levels of transaminase and lactic acid dehydrogenase [LDH]; E86.0 Dehydration; Z87.891 Personal history of nicotine dependence; Z83.3 Family history of diabetes mellitus; Z68.25 Body mass index [BMI] 25.0-25.9, adult; E44.0 Moderate protein-calorie malnutrition
CPT/HCPCS: 36415; 36600; 71045; 80053; 80305; 81001; 82150; 82550; 82552; 82553; 82728; 82803; 83036; 83605; 83615; 83625; 83690; 83735; 83880; 84100; 84436; 84443; 84484; 85025; 85379; 85384; 85610; 85651; 85730; 86140; 86886; 86900; 86901; 87040; 87081; 87086; 87420; 87804; 93005; 94664; 96361; 96365; 96372; 99285; J0456; J0696; J1650; J2060; J3480; J7030; J7060; Q0092; U0003-CS